=== PATIENT | male | born 1955 | race Caucasian/White ===

== ENCOUNTER 2016-08-04 15:30 | Emergency (ER) | payer OTHER ==
[~2016-08-04] VITALS: Ht 175.3 cm; Wt 139.4 kg
[2016-08-04 19:40] VITALS: BP 208/98
== END 2016-08-04 19:41 | disposition home or self-care (01) ==
LOC: EME 15:30
DX: I10 Essential (primary) hypertension (principal); E78.5 Hyperlipidemia, unspecified; E11.9 Type 2 diabetes mellitus without complications
CPT/HCPCS: 99281; 99283